=== PATIENT | female | born 1965 | race Caucasian/White ===

== ENCOUNTER 2020-06-25 11:48 | Emergency (ER) | payer BC, OTHER ==
[2020-06-25 14:58] LABS: APPEARANCE,URINE CLEAR; BILIRUBIN,URINE NEGATIVE (NEGATIVE); COLOR,URINE STRAW; GLUCOSE, URINE NEGATIVE (NEGATIVE); KETONES,URINE NEGATIVE (NEGATIVE); LEUKOCYTE ESTERASE,URINE NEGATIVE (NEGATIVE); NITRITE,URINE NEGATIVE (NEGATIVE); PROTEIN,URINE NEGATIVE (NEGATIVE); URINE SPECIFIC GRAVITY 1.009; UROBILINOGEN,URINE NEGATIVE mg/dL (<2.0)
--- NOTE | 2020-06-25 15:20 | ER Document Report ---
ED General - General Chief Complaint: Abdominal Pain Stated Complaint: LEFT SIDE PAIN Notes: 54-year-old female with past medical history of diverticulosis, sleep apnea presenting today with intermittent left lower quadrant pain starting 7 days ago. States the pain is a cramping, intermittent, sharp pain that does resolve on its own. This morning she felt the pain, had an urge to use the bathroom, had 4 bowel movement and the pain resolved. States her bowels are solid, just loser. No diarrhea. No blood in her stools. Has occassional bloating. She had 1 episode of nausea 3 to 4 days ago, since then she has no nausea or vomiting. No changes to her diet. States she did eat cashews approximately 7 days ago. No fevers, chills, shortness of breath or additional symptoms. - Related Data Allergies/Adverse Reactions: fluoxetine HCl [From Prozac] Allergy (Intermediate, Verified 06/25/20 12:51) ulcers/sores on tongue flower pollen Allergy (Intermediate, Uncoded 06/25/20 12:51) VALVERDE, sinus congestion Past Medical History - Social History Smoking Status: Unknown if Ever Smoked Family History: Reviewed & Not Pertinent - Past Medical History Cardiac Medical History: Denies: Hx Coronary Artery Disease, Hx Heart Attack, Hx Hypertension Pulmonary Medical History: Denies: Hx Asthma, Hx Bronchitis, Hx COPD, Hx Pneumonia Neurological Medical History: Denies: Hx Cerebrovascular Accident, Hx Seizures Musculoskeletal Medical History: Reports Hx Arthritis - LT hip Past Surgical History: Reports: Hx Nose Surgery, Hx Oral Surgery. Denies: Hx Pacemaker - Immunizations Hx Diphtheria, Pertussis, Tetanus Vaccination: Yes - 2008 Review of Systems - Review of Systems Constitutional: No symptoms reported EENT: No symptoms reported Cardiovascular: No symptoms reported Respiratory: No symptoms reported Gastrointestinal: See HPI Genitourinary: No symptoms reported Female Genitourinary: No symptoms reported Musculoskeletal: No symptoms reported Skin: No symptoms reported Hematologic/Lymphatic: No symptoms reported Neurological/Psychological: No symptoms reported Physical Exam - Vital signs Vitals: Temp Pulse Resp BP Pulse Ox 98.1 F 67 16 130/64 H 99 06/25/20 12:06 06/25/20 12:06 06/25/20 12:06 06/25/20 12:06 06/25/20 12:06 Interpretation: No: Hypertensive, Tachycardic, Febrile - Notes Notes: Adult General: GENERAL: Alert, interacts well. No acute distress, non toxic HEAD: Normocephalic, atraumatic EYES: Pupils equal, round and reactive to light. Extraocular movements intact. ENT: Airway patent. Nares patent. NECK: Full range of motion. Supple. Trachea midline. No lymphadenopathy. LUNGS: Clear to auscultation bilaterally, no wheezes, rales, or rhonchi. No respiratory distress. Nontender chest wall. HEART: Regular rate and rhythm. No murmurs, rubs or gallops. ABDOMEN: Soft, mild tenderness to left lower quadrant on deep palpation. Nondistended. (-) [place] sign. Bowel sounds present in all 4 quadrants. No rebound, guarding or masses. GENITOURINARY: Deferred EXTREMITIES: Moves all 4 extremities spontaneously. No edema, normal radial and dorsal pedis pulses bilaterally. No cyanosis. BACK: No cervical, thoracic, lumbar midline tenderness. No saddle anesthesia, normal distal neurovascular exam. Moves all extremities with full range of mot ion. NEUROLOGICAL: Alert and oriented x3. Normal speech. Cranial nerves II through XII grossly intact. Strength 5/ 5 in all extremities. PSYCH: Normal affect, normal mood. SKIN: Warm, dry, normal turgor. No rashes or lesions noted. Course - Re-evaluation Re-evalutation: CT scan shows few small subpleural nodules bilaterally. No signs of bowel inflammation. Patient reports she is in no pain but has concern if the pain returns. She is actively moving in the bed in no distress and no pain. I discussed with patient that I suspect her symptoms are more IBS related. She is afebrile, not tachycardic and has had no diarrhea. I will prescribe her bentyl to help prevent her cramping pain. I discussed with patient that I recommend she follows up with a primary care provider for her abdominal cramping and lung nodules. and that she may return to the emergency department if she has worsening symptoms or the development of new symptoms. Patient acknowledges and verbalizes understanding of instructions and plan. All questions answered. - Vital Signs Vital signs: Temp Pulse Resp BP Pulse Ox 98.1 F 60 16 121/53 L 99 06/25/20 12:06 06/25/20 17:49 06/25/20 17:49 06/25/20 17:49 06/25/20 17:49 - Laboratory Result Diagrams: 06/25/20 15:15 06/25/20 15:15 Laboratory results interpreted by me: 06/25/20 15:15 WBC 3.4 L Discharge - Discharge Clinical Impression: Abdominal pain Qualifiers: Abdominal location: unspecified location Qualified Code(s): R10.9 - Unspecified abdominal pain Condition: Stable Disposition: HOME, SELF-CARE Instructions: Abdominal Pain ([facility]) Additional Instructions: I suspect your symptoms may be related to irritable bowel syndrome. The CT scan shows no diverticulitis. I will prescribe you a medication for your abdominal pain. Please take medication as prescribed. Please follow-up with your primary care provider. You may return to the emergency department for worsening symptoms or the development of new symptoms. Prescriptions: Dicyclomine HCl [Bentyl 20 mg Tablet] 20 mg PO QID 5 Days #20 tablet
[2020-06-25 15:30] LABS: HEMATOCRIT 41.9 % (36.0-47.0); HEMOGLOBIN 14.3 g/dL (12.0-15.5); MEAN CORPUSCULAR HGB CONC 34.2 g/dL (32.0-36.0); MEAN CORPUSCULAR VOLUME 88 fl (80-97); PLATELET COUNT 190 10^3/uL (150-450); RED BLOOD COUNT 4.78 10^6/uL (3.72-5.28); RED CELL DISTRIBUTION WIDTH 13.2 % (11.5-14.0); WHITE BLOOD COUNT 3.4 10^3/uL (4.0-10.5)
[2020-06-25 15:47] LABS: ANION GAP 6 (5-19); BLOOD UREA NITROGEN 11 mg/dL (7-20); CALCIUM 9.2 mg/dL (8.4-10.2); CARBON DIOXIDE 27 mmol/L (22-30); CHLORIDE 105 mmol/L (98-107); GLUCOSE 96 mg/dL (75-110); POTASSIUM 4.1 mmol/L (3.6-5.0)
--- NOTE | 2020-06-25 16:41 | RADIOLOGY REPORT (SQ) ---
EXAM DESCRIPTION: CT ABD/PELVIS WITH IV ONLY IMAGES COMPLETED DATE/TIME: 06/25/2020 4:18 pm REASON FOR STUDY: llq pain, hx diverticulosis, COMPARISON: None. TECHNIQUE: CT scan of the abdomen and pelvis performed using helical scanning technique with dynamic intravenous contrast injection. No oral contrast. Images reviewed with lung, soft tissue, and bone w indows. Reconstructed coronal and sagittal MPR images reviewed. Delayed images for evaluation of the urinary system also acquired. All images stored on PACS. All CT scanners at this facility use dose modulation, iterative reconstruction, and/or weight based d osing when appropriate to reduce radiation dose to as low as reasonably achievable (ALARA). [facility]: Dose Right [facility]: CareDose [facility]: Dose Right [facility]: Teradose 4D [facility]: [employer] CONTRAST TYPE AND DOSE: contrast/concentration: Isovue 350.00 mmol/ml; Total Contrast Delivered: 100 .0 ml; Total Saline Delivered: 72.0 ml RENAL FUNCTION: GFR > 60. RADIATION DOSE: CT Rad equipment meets quality standard of care and radiation dose reduction techniq ues were employed. CTDIvol: 17.0 - 19.8 mGy. DLP: 1996 mGy-cm.. LIMITATIONS: None. FINDINGS: LOWER CHEST: Few scattered subpleural 3 mm nodules bilaterally, right greater than left. LIVER: Normal size. No enhancing masses. No dilated ducts. SPLEEN: Normal size. No focal lesions. PANCREAS: No masses identified. No significant calcifications. No adjacent inflammation or peripancre atic fluid collections. Pancreatic duct not dilated. GALLBLADDER: No calcified stones. No inflammatory changes to suggest cholecystitis. ADRENAL GLANDS: No significant masses. RIGHT KIDNEY AND URETER: No cysts identified. No solid masses identified. No calcified stones. No hyd ronephrosis or hydroureter. LEFT KIDNEY AND URETER: No cysts identified. No solid masses identified. No calcified stones. No hydr onephrosis or hydroureter. AORTA AND VESSELS: No aneurysm. No dissection. Renal arteries, SMA, celiac without significant stenos is. RETROPERITONEUM: No bulky retroperitoneal adenopathy. BOWEL AND PERITONEAL CAVITY: No obstruction or inflammatory changes. No free fluid. APPENDIX: Normal. PELVIS: No mass. No free fluid. Unremarkable bladder. ABDOMINAL WALL: No masses. No hernias. BONES: No acute findings. OTHER: No other significant finding. IMPRESSION: NO ACUTE FINDINGS IN THE ABDOMEN OR PELVIS ON CT SCAN WITH IV CONTRAST. Few scattered subpleural 3 mm nodules bilaterally, right greater than left. TECHNICAL DOCUMENTATION: JOB ID: [id number] Quality ID # [id number]: Final reports with documentation of one or more dose reduction techniques (e.g., Au tomated exposure control, adjustment of the mA and/or kV according to patient size, use of iterative reconstruction technique) 2010 [employer]- All Rights Reserved Reading location - IP/workstation name: [email or web address]
[2020-06-25 17:50] VITALS: BP 121/53
== END 2020-06-25 17:49 | disposition home or self-care (01) ==
LOC: ER 11:48
DX: R10.32 Left lower quadrant pain (principal); R10.814 Left lower quadrant abdominal tenderness; R19.4 Change in bowel habit; R14.0 Abdominal distension (gaseous); Z87.19 Personal history of other diseases of the digestive system; Z88.8 Allergy status to other drugs, medicaments and biological substances; Z91.048 Other nonmedicinal substance allergy status
CPT/HCPCS: 36415; 74177; 80048; 81001; 85027; 99284